=== PATIENT | female | born 1995 | race Caucasian/White ===

== ENCOUNTER 2022-02-08 19:35 | Inpatient (IN) ==
[2022-02-08] MEDS ORDERED: OXYTOCIN 30 UNITS/500 ML BAG IV PRN ×2 (20:07)
--- NOTE | 2022-02-08 20:10 | History & Physical Report ---
Date of Service February 08, 2022 Assessment & Plan (1) Encounter for supervision of normal first , unspecified trimester: Plan: Pineda bulb was placed, and immediately upon placement (before inflation of bulb), meconium-tinged amniotic fluid poured out of the pineda tubing. The tube was withdrawn. I discussed with patient that since AROM inadvertently occurred with pineda placement, I would recommend that she stay for induction. Admit to L&D, EFM/toco. Labs. Will start pitocin, as she is wilmar. History of Present Illness Chief Complaint: IOL Primary Care Provider: EVGENY Sargent 26yo @ 40 11/05, here for pineda bulb placement for IOL. Postdates, hypothyroid, h/o lower back herniated discs. Allergies Allergy/AdvReac Type Severity Reaction Status Date / Time No Known Drug Allergies Allergy Unknown Verified 02/08/22 08:28 Home Medications Medication Instructions Recorded Confirmed Type prenat.vits,michelle,wwp-[id number] 1 tab PO DAILY 06/17/21 02/08/22 History levothyroxine 88 mcg tablet 88 mcg PO DAILY #30 tab 10/07/21 02/08/22 Rx Patient History Medical History Anxiety Hypothyroidism affecting in first trimester Intervertebral disc protrusion Small to moderate left paracentral disc protrusion at the L4-L5 level with secondary deformity of thecal sac. Moderate right sided disc protrusion at L5-S1 level which abuts right S1 nerve root on 12/2020 lumbar spine MRI Lumbar back pain with radiculopathy affecting right lower extremity 05/2021 EMG: mild acute right S1 radiculopathy Surgical History H/O tooth extraction wisdom teeth Family History Unknown Breast cancer Grandfather Brain cancer Mother Myocardial infarction Hypertension Dyslipidemia Mini stroke Stroke Father Gout Denies family history of Ovarian cancer Prostate cancer Colorectal cancer Social History Smoking Status: Never smoker Second Hand Exposure: No; Hx Alcohol Use: No Hx Substance Use: No Preferred Language: Citizen Of [place] Communication Ability: Effective Visual Impairment: No Limitations Hearing Ability: Normal Gin Clerk Required: No Beliefs That Will Affect Care: None marital status: marital status details: Vadim (26) [phone] Current Living Situation: Spouse Current Living Situation Comment: lives with with fob, and 1 dog, 1 cat, fob to change litter current occupational status: employed current occupation: [employer] - O[employer] Other Information That Helps Us Care for You: No Feels Safe at Home: Yes Safety Concerns: Feels Safe At This Time Childhood Exposure to Second-Hand Smoke: Yes caffeine: Yes Dental Care, Regularly: Yes Physical Activity Frequency: 3-4 Times per Week Seatbelt Use: always Sunscreen Use: Yes Assistive Devices: Glasses Review of Systems All systems reviewed & are unremarkable except as noted in HPI & below Physical Exam Physical Exam: SVE 1-2/50/-2 Medium/mid. EFW 8-9 Constitutional: WD/WN, vitals as above Respiratory: normal respiratory effort, lungs clear to auscultation no respiratory distress Cardiovascular: Rate/Rhythm: regular rate and regular rhythm Gastrointestinal (Abdomen): Inspection/Auscultation: abdomen normal to inspection Percussion/Palpation: abdomen soft; abdomen nontender Gravid. No s/s chorio or abruption. Skin: no rashes, warm and dry Psychiatric: A+Ox3, euthymic affect Results & Data ([facility]) Vital Signs (Past 12 Hours) Vital Signs Temp Pulse Resp BP 02/08/22 19:47 37.2 C 18 02/08/22 19:43 85 133/86 Monitoring External Monitor FHT Cat 1, [place] Q 3-5 min Coding Level of Care Code None Diagnoses Encounter for supervision of normal first , unspecified trimester Z34.00
[2022-02-08 20:31] LABS: Hematocrit (blood only) 34.3 % (34.1-44.9); Hemoglobin 11.4 g/dl (12.0-16.0); Mean Corpuscular Hemoglobin 30.3 pg (25.0-34.0); Mean Corpuscular Hgb Conc 33.2 g/dL (32.0-36.0); Mean Corpuscular Volume 91.2 fL (80.0-100.0); Mean Platelet Volume 8.6 fL (9.4-12.3); Platelet Count 300 K/uL (130-400); RDW Coefficient of Variation 15.9 % (11.5-14.5); RDW Standard Deviation 52.8 fL (36.4-46.3); Red Blood Count 3.76 M/uL (3.93-5.22); White Blood Count 11.77 K/ul (4.8-10.8)
[2022-02-08] MEDS: LACTATED RINGER'S 1,000 ML IV PRN (20:52)
[2022-02-09] MEDS ORDERED: LIDOCAINE 2%/EPINEPHRINE 1:200,000 20 ML SDV ONE (00:56)
[2022-02-09] MEDS ORDERED: ePHEDrine sulfate 50 MG/ML AMP ONE (00:56)
[2022-02-09] MEDS ORDERED: SODIUM CHLORIDE 0.9% INJ 10 ML VIAL ONE (00:56)
[2022-02-09] MEDS ORDERED: fentaNYL citrate 100 MCG/2 ML VIAL ONE (00:56)
[2022-02-09] MEDS ORDERED: BUPIVACAINE 0.25% 30 ML VIAL ONE (00:56)
[2022-02-09] MEDS ORDERED: fentaNYL 2MCG/ML ROPIVACAINE 1.25MG/ML 100 ML BAG EPI ONE (00:57)
[2022-02-09] MEDS ORDERED: diphenhydrAMINE 50 MG/ML VIAL IV PRN (01:16)
[2022-02-09] MEDS ORDERED: NALOXONE HCL 1 MG in SODIUM CHLORIDE 0.9% 1000ML 1,000 ML IV PRN (01:16)
[2022-02-09] MEDS ORDERED: NALOXONE HCL 0.4 MG/1 ML VIAL/CARP IV PRN (01:16)
[2022-02-09] MEDS ORDERED: fentaNYL 2MCG/ML ROPIVACAINE 1.25MG/ML 100 ML BAG EPI PRN (01:16)
[2022-02-09] MEDS ORDERED: ONDANSETRON INJ 2 MG/ML 2 ML VIAL IV PRN (01:16)
[2022-02-09] MEDS ORDERED: NALBUPHINE HCL INJ 10 MG/ML AMP IV PRN (01:16)
[2022-02-09] MEDS ORDERED: ePHEDrine sulfate 50 MG/ML AMP IV PRN (01:16)
--- NOTE | 2022-02-09 01:20 | Anesthesiology Consultation ---
Date of Service February 09, 2022 Assessment & Plan Chart Review Chart Review: Patient NOT seen in Pre Admission Testing and Acceptable Risk for Labor Epidural Consults Requested none ASA ASA2 Proposed Anesthesia Anesthesia Type: Labor Epidural and CSE Risk / Benefits Reviewed With: PT / POA / Parent / Guardian, Accepts Plan and Informed Consent Obtained History Height/Weight Height: 5 ft 7 in Weight: 99.79 kg Allergies Allergy/AdvReac Type Severity Reaction Status Date / Time No Known Drug Allergies Allergy Unknown Verified 02/08/22 08:28 Medications Home Medications Medication Instructions Recorded Confirmed Last Taken prenat.vits,michelle,[id number] 1 tab PO DAILY 06/17/21 02/08/22 02/08/22 18:30 levothyroxine 88 mcg tablet 88 mcg PO DAILY #30 tab 10/07/21 02/08/22 02/08/22 06:30 Active Medications Generic Name Dose Route Start Last Admin Trade Name Freq PRN Reason Stop Dose Admin Oxytocin 30 units in 500 mls @ 1 mls/hr 02/08/22 20:07 02/08/22 20:53 Pitocin IV 02/10/22 20:06 0.06 units/hr .Q24H PRN 1 mls/hr Labor Induction/Augmentation Administration Protocol 0.06 UNITS/HR Lactated Ringer's 1,000 mls @ 125 mls/hr 02/08/22 20:07 02/08/22 20:52 Lr IV 02/10/22 20:06 125 mls/hr .Q8H PRN Administration L&D Protocol Protocol NPO Date Last Intake of Fluids: 02/09/22 Time Last Intake of Fluids: 00:30 Date Last Intake of Solids: 02/08/22 Time Last Intake of Solids: 16:00 Past Medical History Medical History Anxiety Hypothyroidism affecting in first trimester Intervertebral disc protrusion Small to moderate left paracentral disc protrusion at the L4-L5 level with secondary deformity of thecal sac. Moderate right sided disc protrusion at L5-S1 level which abuts right S1 nerve root on 12/2020 lumbar spine MRI Lumbar back pain with radiculopathy affecting right lower extremity 05/2021 EMG: mild acute right S1 radiculopathy Exercise / Class Metabolic Activity II 4-5 Yardwork/Stairs/Walk up hill Past Family History Family History Unknown Breast cancer Grandfather Brain cancer Mother Myocardial infarction Hypertension Dyslipidemia Mini stroke Stroke Father Gout Denies family history of Ovarian cancer Prostate cancer Colorectal cancer Past Surgical History Surgical History H/O tooth extraction wisdom teeth Past Anesthesia History No Hx of Anesthesia Complications and No Family Hx of Anesthesia Complications History of PONV No Hx of PONV and No Hx of Motion Sickness Social History Smoking Status: Never smoker Hx Alcohol Use: No Hx Substance Use: No Review of Systems no chest pain or sob Physical Exam Vital Signs Last Vital Signs Temp 36.7 C 02/08/22 23:56 Pulse 95 H 02/09/22 01:13 Resp 18 02/08/22 19:47 BP 116/67 02/08/22 23:53 Pulse Ox 99 02/09/22 01:13 ENMT Mouth: no TMJ abnormality Thyromental Distance: > or= 3.5 Finger Breadths Mallampati Class: II Neck normal visual inspection Respiratory normal respiratory effort Auscultation: lungs clear to auscultation bilaterally Cardiovascular Rate/Rhythm: regular rate and regular rhythm Musculoskeletal Spine: normal cervical ROM Neurologic moves all extremities Psychiatric Orientation: alert and oriented x 3 Testing Laboratory Results 02/08/22 20:15
[2022-02-09] MEDS: LACTATED RINGER'S 1,000 ML IV PRN ×2 (01:36→05:46)
[2022-02-09] MEDS ORDERED: NURSING L&D Epidural Breakthrough Pain Update ONE (05:28)
--- NOTE | 2022-02-09 07:42 | Delivery Summary ---
Vaginal Delivery Summary Date of Service February 09, 2022 Vaginal Delivery Summary and 2nd Degree LAC Vaginal Delivery Summary: Pre-delivery diagnoses: 26yo @ 40 5/7, IOL, hypothyroidism, h/o herniated discs in back Post-delivery diagnoses: same Procedure: spontaneous vaginal delivery Surgeon: Christiana Holt DO Complications: none Findings: Viable female . Apgars: 8/9. Weight pending, please see nursery records Estimated blood loss: 300ml Description of delivery: The patient progressed to complete with epidural anesthesia. She then began to push. She spontaneously vaginally delivered a viable from the cephalic presentation. The head delivered in LUIS ENRIQUE position. The anterior shoulder delivered, followed by the posterior shoulder, followed by the body. No nuchal cord. The baby was placed on mother's abdomen and a spontaneous cry was heard. Delayed cord clamping was employed, and the cord was doubly clamped and cut. Cord blood was obtained. The placenta was delivered spontaneously intact with a 3-vessel cord. The uterus and vagina were swept of clots and debris. IV pitocin was given. The uterus became firm. The cervix, vagina, and perineum were inspected and a 2nd degree perineal laceration was noted, repaired in standard fashion with 3-0 Vicryl. Excellent hemostasis was observed. The mother and baby are recovering in stable and good condition in the room. Sponge, needle and instrument counts were correct x 2. Christiana Holt DO [facility] Vaginal Delivery Charge Vaginal Delivery Codes: 67617 global code for the antepartum, delivery, and post- Delivery Type Details: and 2nd Degree LAC
[2022-02-09] MEDS ORDERED: OXYTOCIN 30 UNITS/500 ML BAG IV PRN (07:52)
[2022-02-09] MEDS ORDERED: HYDROCORTISONE ACETATE 25 MG SUPP PR PRN (07:52)
[2022-02-09] MEDS ORDERED: bisacodyL 10 MG SUPP PR PRN (07:52)
[2022-02-09] MEDS ORDERED: DIPHTHERIA/TETANUS/PERTUSSIS 0.5 ML SYR/VIAL IM ONE (07:52)
[2022-02-09] MEDS ORDERED: oxyCODONE/ACETAMINOPHEN 5mg/325mg TAB PO PRN (07:52)
[2022-02-09] MEDS ORDERED: BENZOCAINE 20% AER SPR 82.5 GM CAN EXT PRN (07:52)
[2022-02-09] MEDS: IBUPROFEN 600 MG TAB PO PRN ×3 (09:22→20:38)
[2022-02-09] MEDS: LEVOTHYROXINE SODIUM 88 MCG TABLET PO SCH (09:37)
[2022-02-09] MEDS: PRENATAL VITAMIN 1 TAB PO SCH (09:57)
[2022-02-09] MEDS: DOCUSATE SODIUM 100 MG CAP PO SCH ×2 (09:58→20:38)
--- NOTE | 2022-02-09 09:58 | Anesthesia Procedure Note ---
Date of Service February 09, 2022 Anesthesia Post Epidural Note Vital Signs Vital Signs: Temp Pulse Resp BP Pulse Ox 37.7 C H 74 18 118/63 96 02/09/22 05:04 02/09/22 09:55 02/09/22 05:00 02/09/22 09:55 02/09/22 07:48 Pain Intensity Abdomen: Pain Intensity: 5 Notes Mental Status: alert / awake / arousable Nausea / Vomiting: adequately controlled Pain: adequately controlled Airway Patency, RR, SpO2: stable & adequate BP & HR: stable & adequate Hydration State: stable & adequate Neuraxial Anesthesia: was administered and sensory block is resolving Anesthetic Complications: no major complications apparent and Pt Satisfied with anesthetic care Epidural: Removed without complications and With tip intact
[2022-02-09] MEDS: ACETAMINOPHEN 325 MG TAB PO PRN (20:39)
[2022-02-10] MEDS: ACETAMINOPHEN 325 MG TAB PO PRN ×3 (02:30→12:03)
[2022-02-10] MEDS: IBUPROFEN 600 MG TAB PO PRN ×5 (02:30→20:47)
--- NOTE | 2022-02-10 05:44 | Obstetrical Progress Note ---
Date of Service <Kinjal Preston DO - Last Filed: 02/10/22 06:44> February 10, 2022 Assessment & Plan <Kinjal Preston DO - Last Filed: 02/10/22 06:44> (1) Status post vaginal delivery: continue OOB, ambulation, diet as tolerated <Tabitha Cain MD, FACOG - Last Filed: 02/10/22 08:03> (1) Status post vaginal delivery: Subjective <Kinjal Preston DO - Last Filed: 02/10/22 06:44> Molly is a 26 y/o female who is now PPD # 1 following vaginal delivery at 40 5/7. Reports feeling well overall this morning. Mild abdominal cramping well managed on analgesics. Voiding. Tolerating meals overnight and able to ambulate some. Is passing gas, but no bowel movements. Some persistent lochia with some improvement this morning. Breast feeding. Review of Systems Denies fever, chills, sweats Denies shortness of breath, difficulty breathing, chest pain, palpitations, chest pressure. Denies breast pain. Denies dysuria. Denies headache or changes in vision. Physical Exam <Kinjal Preston DO - Last Filed: 02/10/22 06:44> General: Alert, oriented. No acute distress. Cardiac: Regular rate and rhythm, no murmurs/rubs/gallops. Respiratory: Clear to auscultation bilaterally a/p, no wheezes/rales/rhonchi. No increased work of breathing. Symmetrical chest rise. No respiratory distress. Abdomen: Soft, nontender, nondistended. Bowel sounds present. Uterus: Uterine fundus firm, palpable _ cm below umbilicus. Lower Extremities: Some lower extremity edema. No deep calf pain. Ilsa's negative bilaterally. <Tabitha Cain MD, FACOG - Last Filed: 02/10/22 08:03> General: Alert, oriented. No acute distress. Cardiac: Regular rate and rhythm, no murmurs/rubs/gallops. Respiratory: Clear to auscultation bilaterally a/p, no wheezes/rales/rhonchi. No increased work of breathing. Symmetrical chest rise. No respiratory distress. Abdomen: Soft, nontender, nondistended. Bowel sounds present. Uterus: Uterine fundus firm, palpable 2 cm below umbilicus. Lower Extremities: Some lower extremity edema. No deep calf pain. Ilsa's negative bilaterally. Results & Data ([facility]) <Kinjal Preston DO - Last Filed: 02/10/22 06:44> Vital Signs (Past 12 Hours) Temp Pulse Resp BP Pulse Ox O2 Del Method 36.8 C 92 H 18 110/67 97 02/09/22 15:20 02/09/22 15:20 02/09/22 15:20 02/09/22 15:20 02/09/22 15:20 02/09/22 15:20 <Tabitha Cain MD, FACOG - Last Filed: 02/10/22 08:03> Co-Signing Physician Notes Resident Physician Supervision Note: I was present with Dr. Preston during the history and exam. I discussed the case with the resident and agree with the findings and plan as documented in the note. Any exceptions or clarifications are listed here: stable, routine care. rh pos, ri. . abd soft ff 2 down nt, nt calves. +1edema. Documented By: Tabitha Cain MD, FACOG Resident Activity Tracking <Kinjal Preston DO - Last Filed: 02/10/22 06:44> Resident Involvement: Resident Care Provided Care Provided: OB Delivery (Post )
[2022-02-10] MEDS: LEVOTHYROXINE SODIUM 88 MCG TABLET PO SCH (06:21)
[2022-02-10 07:09] LABS: Hematocrit (blood only) 30.9 % (34.1-44.9); Hemoglobin 10.1 g/dl (12.0-16.0)
[2022-02-10] MEDS: PRENATAL VITAMIN 1 TAB PO SCH (07:37)
[2022-02-10] MEDS: DOCUSATE SODIUM 100 MG CAP PO SCH ×2 (07:37→20:47)
[2022-02-10] MEDS ORDERED: bisacodyL 5 MG TABEC PO SCH (20:00)
[2022-02-11] MEDS: IBUPROFEN 600 MG TAB PO PRN ×2 (01:24→05:04)
--- NOTE | 2022-02-11 05:02 | Obstetrical Progress Note ---
Date of Service <Kinjal Preston DO - Last Filed: 02/11/22 06:02> February 11, 2022 Assessment & Plan <Kinjal SArmani Preston DO - Last Filed: 02/11/22 06:02> (1) Status post vaginal delivery: continue OOB, ambulation, diet as tolerated Discharge today <Farzana Toro MD - Last Filed: 02/11/22 07:41> (1) Status post vaginal delivery: Subjective <Kinjal Mary DO Mohan - Last Filed: 02/11/22 06:02> Molly is a 26 y/o female who is now PPD # 2 following vaginal delivery at 40 5/7. Reports feeling well overall this morning. Mild abdominal cramping well managed on analgesics. Voiding. Tolerating meals overnight and able to ambulate some. Is passing gas and had a bowel movements. Some persistent lochia with improvement this morning. Breast feeding. Physical Exam <Kinjal Preston DO - Last Filed: 02/11/22 06:02> General: Alert, oriented. No acute distress. Cardiac: Regular rate and rhythm, no murmurs/rubs/gallops. Respiratory: Clear to auscultation bilaterally a/p, no wheezes/rales/rhonchi. No increased work of breathing. Symmetrical chest rise. No respiratory distress. Abdomen: Soft, nontender, nondistended. Bowel sounds present. Uterus: Uterine fundus firm, palpable 2 cm below umbilicus. Lower Extremities: Some lower extremity edema. No deep calf pain. Ilsa's negative bilaterally. Results & Data ([facility]) <Kinjal Preston DO - Last Filed: 02/11/22 06:02> Vital Signs (Past 12 Hours) Vital Signs Temp Pulse Resp BP Pulse Ox O2 Del Method 02/10/22 23:00 36.7 C 79 20 128/76 99 Room Air 02/10/22 19:30 36.7 C 70 20 134/81 99 Room Air <Farzana Toro MD - Last Filed: 02/11/22 07:41> Co-Signing Physician Notes Resident Physician Supervision Note: I interviewed and examined the patient. Discussed with Dr. Preston and agree with findings and plan as documented in the note. Any exceptions or clarifications are listed here: [ ] Documented By: Farzana Toro MD, FACOG Resident Activity Tracking <Kinjal Preston, DO - Last Filed: 02/11/22 06:02> Resident Involvement: Resident Care Provided Care Provided: OB Delivery (Post )
[2022-02-11] MEDS: LEVOTHYROXINE SODIUM 88 MCG TABLET PO SCH (05:53)
[2022-02-11] MEDS: DOCUSATE SODIUM 100 MG CAP PO SCH (08:05)
[2022-02-11] MEDS: PRENATAL VITAMIN 1 TAB PO SCH (08:05)
== END 2022-02-11 13:00 | disposition home or self-care (01) | DRG 807 ==
LOC: OPB 19:35 → 4S1 19:37 → 4E2 02-09 10:49

== ENCOUNTER 2024-01-31 07:37 | Inpatient (IN) ==
[2024-01-31] MEDS ORDERED: OXYTOCIN 30 UNITS/NSS 30 UNITS/500 ML BAG IV PRN ×2 (07:47→15:02)
[2024-01-31] MEDS ORDERED: LIDOCAINE 1% LOCAL 20 ML VIAL INFIL PRN (07:47)
[2024-01-31 08:17] LABS: Hematocrit (blood only) 36.3 % (37.0-47.0); Hemoglobin 12.1 g/dl (12.0-16.0); Mean Corpuscular Hemoglobin 29.7 pg (25.0-34.0); Mean Corpuscular Hgb Conc 33.3 g/dL (32.0-36.0); Mean Platelet Volume 8.3 fL (9.4-12.4); Platelet Count 264 K/uL (130-400); RDW Coefficient of Variation 15.9 % (11.5-14.5); RDW Standard Deviation 51.7 fL (36.4-46.3); Red Blood Count 4.08 M/uL (4.20-5.40)
[2024-01-31] MEDS: LEVOTHYROXINE SODIUM 88 MCG TABLET PO SCH (08:29)
[2024-01-31] MEDS: LACTATED RINGER'S 1,000 ML IV PRN (08:30)
[2024-01-31] MEDS: OXYTOCIN 30 UNITS/NSS 30 UNITS/500 ML BAG IV PRN (08:33)
--- NOTE | 2024-01-31 11:10 | History & Physical Report ---
Date of Service January 31, 2024 Assessment & Plan (1) Insulin controlled gestational diabetes mellitus (GDM) during : Plan: Intrauterine at 39-4/7 weeks presents for induction of labor because of GDM on insulin. Pitocin induction was begun per labor and delivery protocol. Epidural when requested. Anticipate vaginal . Admission and Anticipated Discharge Date Admission Date: January 31, 2024 History of Present Illness Primary Care Provider: Tyesha Thornton MD Patient is a 28-year-old 2 para 1-0-0-1 female EDC of 02/03/2024 who presents for induction of labor because of GDM on insulin. Blood sugars have been well-controlled during her on evening dose of insulin alone. testing has all been reassuring. GBS is negative. has also been complicated by hypothyroidism. Allergies Allergy/AdvReac Type Severity Reaction Status Date / Time No Known Drug Allergies Allergy Mild Unknown Verified 01/31/24 08:44 Home Medications Medication Instructions Recorded Confirmed Type prenat.vits,michelle,[id number] 1 tab PO DAILY 06/17/21 01/31/24 History levothyroxine 88 mcg tablet 88 mcg PO DAILY #90 tabs 09/12/23 01/31/24 Rx acetone (urine) test (Ketone Urine #50 ea 11/25/23 01/30/24 Rx Test strips) blood sugar diagnostic (OneTouch #150 ea 11/25/23 01/30/24 Rx Verio test strips) blood-glucose meter (OneTouch #1 ea 11/25/23 01/30/24 Rx Verio Reflect Meter) lancets 33 gauge (OneTouch Delica #150 ea 11/25/23 01/30/24 Rx Plus Lancet) insulin NPH isoph U-100 human 100 8 unit (0.08 mL) subcut QPM #15 mL 12/15/23 01/31/24 Rx unit/mL (3 mL) subcutaneous pen (Novolin N FlexPen) pen needle, diabetic 32 gauge x #50 ea 12/15/23 01/30/24 Rx 5/32" (BD Ultra-Fine Libby Pen Needle) Patient History Medical History History of chicken pox Intervertebral disc protrusion Small to moderate left paracentral disc protrusion at the L4-L5 level with secondary deformity of thecal sac. Moderate right sided disc protrusion at L5-S1 level which abuts right S1 nerve root on 12/2020 lumbar spine MRI Encounter for supervision of normal first , unspecified trimester Surgical History Status post vaginal delivery H/O tooth extraction wisdom teeth Family History Unknown Breast cancer Grandfather Brain cancer Mother Myocardial infarction Hypertension Dyslipidemia Mini stroke Stroke Father Gout Denies family history of Ovarian cancer Prostate cancer Colorectal cancer Social History (Updated 06/27/23 @ 10:53 by Sylvia Deng) Smoking Status: Never smoker Second Hand Exposure: No; Do You Dip or Chew Tobacco: No; Hx Alcohol Use: No Hx Substance Use: No Preferred Language: [place]ican Communication Ability: Effective Visual Impairment: No Limitations Hearing Ability: Normal Assistant Customer Service Manager Required: No Beliefs That Will Affect Care: None marital status: marital status details: Vadim Ferrelljesus (28) [phone] Current Living Situation: Spouse and Family Current Living Situation Comment: lives with with fob, daughter, 1 cat, fob to change litter current occupational status: other current occupation: homemaker Other Information That Helps Us Care for You: No Feels Safe at Home: Yes Safety Concerns: Feels Safe At This Time Childhood Exposure to Second-Hand Smoke: Yes caffeine: Yes Dental Care, Regularly: Yes Physical Activity Frequency: 3-4 Times per Week Seatbelt Use: always Sunscreen Use: Yes Assistive Devices: None Review of Systems All systems reviewed & are unremarkable except as noted in HPI & below Physical Exam Constitutional: WD/WN, vitals as above Psychiatric: A+Ox3, euthymic affect Genitourinary: OB Exam Abdomen: + vertex, + estimated weight (7-8 pounds) and + irregular contractions Manual OB Exam: + cervical dilation 2 cm, + cervical effacement 50% and + station -1 OB Exam Monitor Tracing: + external FHT monitor used, + external uterine monitor used, + category I and + normal FHT variability Results & Data Vital Signs (Past 12 Hours) Vital Signs Temp Pulse Resp BP 01/31/24 10:38 70 01/31/24 10:38 129/81 01/31/24 09:37 18 01/31/24 09:37 18 07/02/24 09:37 83 01/31/24 09:37 134/79 01/31/24 07:55 98.8 F 20 01/31/24 07:48 81 130/75 Code Status & VTE Plan VTE Prophylaxis Plan VTE Prophylaxis will be ordered: No Coding Level of Care Code None Diagnoses Insulin controlled gestational diabetes mellitus (GDM) during O24.414
[2024-01-31] MEDS ORDERED: fentaNYL citrate PF 100 MCG/2 ML VIAL EPI PRN (12:36)
[2024-01-31] MEDS ORDERED: SODIUM CHLORIDE 0.9% PF INJ 10 ML VIAL EPI PRN (12:36)
[2024-01-31] MEDS ORDERED: ePHEDrine sulfate 50 MG/ML AMP IV PRN (12:36)
[2024-01-31] MEDS ORDERED: diphenhydrAMINE 50 MG/ML VIAL IV PRN (12:36)
[2024-01-31] MEDS ORDERED: NALOXONE HCL 1 MG in SODIUM CHLORIDE 0.9% 1,000 ML IV PRN (12:36)
[2024-01-31] MEDS ORDERED: ROPIVACAINE 0.5% PF 5 MG/ML 20 ML VIAL EPI PRN (12:36)
[2024-01-31] MEDS ORDERED: fentANYL 2 MCG/ML BUPIVacaine 0.125%-NSS 100ML BAG EPI PRN (12:36)
[2024-01-31] MEDS ORDERED: BUPIVACAINE 0.25% PF 30 ML VIAL EPI PRN (12:36)
[2024-01-31] MEDS ORDERED: NALOXONE HCL 0.4 MG/1 ML VIAL/CARP IV PRN (12:36)
[2024-01-31] MEDS ORDERED: LIDOCAINE 2% MPF LOCAL 5 ML VIAL EPI PRN (12:36)
[2024-01-31] MEDS ORDERED: NALBUPHINE HCL 5 MG in SYRINGE 0 ML IV PRN (12:36)
--- NOTE | 2024-01-31 12:38 | Anesthesiology Consultation ---
Date of Service January 31, 2024 Assessment & Plan (1) Encounter for pre-operative examination: Chart Review Chart Review: Patient NOT seen in Pre Admission Testing and Acceptable Risk for Labor Epidural Consults Requested none History Height/Weight Height: 5 ft 7 in Weight: 100.698 kg Allergies Allergy/AdvReac Type Severity Reaction Status Date / Time No Known Drug Allergies Allergy Mild Unknown Verified 01/31/24 08:44 Medications Home Medications Medication Instructions Recorded Confirmed Last Taken prenat.vits,michelle,vdy-[id number]-ktcgz 1 tab PO DAILY 06/17/21 01/31/24 02/08/22 18:30 levothyroxine 88 mcg tablet 88 mcg PO DAILY #90 tabs 09/12/23 01/31/24 01/31/24 06:00 acetone (urine) test (Ketone Urine #50 ea 11/25/23 01/30/24 Unknown Test strips) blood sugar diagnostic (OneTouch #150 ea 11/25/23 01/30/24 Unknown Verio test strips) blood-glucose meter (OneTouch #1 ea 11/25/23 01/30/24 Unknown Verio Reflect Meter) lancets 33 gauge (OneTouch Delica #150 ea 11/25/23 01/30/24 Unknown Plus Lancet) insulin NPH isoph U-100 human 100 8 unit (0.08 mL) subcut QPM #15 mL 12/15/23 01/31/24 01/30/24 20:00 unit/mL (3 mL) subcutaneous pen (Novolin N FlexPen) pen needle, diabetic 32 gauge x #50 ea 12/15/23 01/30/24 Unknown 532" (BD Ultra-Fine Libby Pen Needle) Active Medications Generic Name Dose Route Start Last Admin Trade Name Freq PRN Reason Stop Dose Admin Oxytocin 30 units in 500 mls @ 10 mls/hr 01/31/24 07:47 01/31/24 10:35 Pitocin 30 Units/Nss IV 02/02/24 07:46 0.6 units/hr .Q24H PRN 10 mls/hr Labor Induction/Augmentation Titration Protocol 0.6 UNITS/HR Lactated Ringer's 1,000 mls @ 125 mls/hr 01/31/24 07:47 01/31/24 12:26 Lr IV 02/02/24 07:46 125 mls/hr .Q8H PRN Administration L&D Protocol Protocol Levothyroxine Sodium 88 mcg 01/31/24 08:00 01/31/24 08:29 Levothyroxine Sodium 88 Mcg Tablet PO 03/01/24 07:59 Not Given DAILYBB ALCON Past Medical History Medical History History of chicken pox Intervertebral disc protrusion Small to moderate left paracentral disc protrusion at the L4-L5 level with secondary deformity of thecal sac. Moderate right sided disc protrusion at L5-S1 level which abuts right S1 nerve root on 12/2020 lumbar spine MRI Encounter for supervision of normal first , unspecified trimester Exercise / Class Metabolic Activity II 4-5 Yardwork/Stairs/Walk up hill Past Family History Family History Unknown Breast cancer Grandfather Brain cancer Mother Myocardial infarction Hypertension Dyslipidemia Mini stroke Stroke Father Gout Denies family history of Ovarian cancer Prostate cancer Colorectal cancer Past Surgical History Surgical History Status post vaginal delivery H/O tooth extraction wisdom teeth Social History Smoking Status: Never smoker Do You Dip or Chew Tobacco: No Hx Alcohol Use: No Hx Substance Use: No substance use type: does not use Physical Exam Vital Signs Last Vital Signs Temp 37.1 C 01/31/24 07:55 Pulse 98 H 01/31/24 12:51 Resp 18 01/31/24 09:37 BP 131/83 01/31/24 12:41 Pulse Ox 99 01/31/24 12:51 Testing Laboratory Results 01/31/24 07:56 01/31/24 01/31/24 01/31/24 11:03 09:05 08:18 POC Glucose 93 97 105 H
[2024-01-31] MEDS: fentANYL 2 MCG/ML BUPIVacaine 0.125%-NSS 100ML BAG ONE (13:04)
[2024-01-31] MEDS: fentaNYL citrate PF 100 MCG/2 ML VIAL ONE (13:11)
[2024-01-31] MEDS: LIDOCAINE 2%/EPINEPHRINE 1:200,000 20 ML PF ONE (13:11)
[2024-01-31] MEDS: BUPIVACAINE 0.25% PF 30 ML VIAL ONE (13:12)
[2024-01-31] MEDS ORDERED: BENZOCAINE 20% SPRY 85 APPLN/85 GM CAN EXT PRN (15:02)
[2024-01-31] MEDS ORDERED: bisacodyL 10 MG SUPP PR PRN (15:02)
[2024-01-31] MEDS ORDERED: HYDROCORTISONE ACETATE 25 MG SUPP PR PRN (15:02)
[2024-01-31] MEDS ORDERED: oxyCODONE/ACETAMINOPHEN 5mg/325mg TAB PO PRN (15:02)
[2024-01-31] MEDS ORDERED: DIPHTHER/TETAN/PERTUS Vaccine (Tdap, Adol/Adult) 0.5mL IM ONE (15:02)
--- NOTE | 2024-01-31 15:07 | Delivery Summary ---
Vaginal Delivery Summary Date of Service January 31, 2024 Vaginal Delivery Summary [facility] Patient is a 28-year-old 2 para 1-0-0-1 female who presents at 39 4/7 weeks for induction of labor because of GDM on insulin. Pitocin induction was begun per labor and delivery protocol. Membranes ruptured spontaneously for clear fluid. She received effective epidural analgesia. She progressed to full dilation with delivery of a viable male over intact perineum. Rest the infant delivered without maternal effort. He was vigorous crying and moving all 4 limbs. After 1 minute, the blood cord was clamped and cut. After cord blood was obtained, the placenta was expressed intact with a three-vessel cord. bleeding was controlled with dilute Pitocin and fundal massage. Perineum was noted to be intact. QBL is 207 mL. Mother and doing well after delivery. [facility] [place] Vaginal Delivery Charge Delivery Type Details: [facility]
[2024-01-31] MEDS: SODIUM CHLORIDE 0.9% PF INJ 10 ML VIAL ONE (16:33)
[2024-01-31] MEDS: LIDOCAINE 2%/EPINEPHRINE 1:200,000 20 ML PF EPI STA (16:33)
[2024-01-31] MEDS: BUPIVACAINE 0.25% PF 30 ML VIAL EPI STA (16:33)
[2024-01-31] MEDS: SODIUM CHLORIDE 0.9% PF INJ 10 ML VIAL EPI STA (16:33)
[2024-01-31] MEDS: fentaNYL citrate PF 100 MCG/2 ML VIAL EPI STA (16:33)
[2024-01-31] MEDS: ePHEDrine sulfate 50 MG/ML AMP ONE (16:33)
--- NOTE | 2024-01-31 17:14 | Anesthesia Procedure Note ---
Date of Service January 31, 2024 Anesthesia Post Epidural Note Vital Signs Vital Signs: Temp Pulse Resp BP Pulse Ox 36.4 C L 93 H 16 114/67 97 01/31/24 13:39 01/31/24 17:10 01/31/24 11:30 01/31/24 17:10 01/31/24 14:51 Pain Intensity Abdomen: Pain Intensity: 1 Notes Mental Status: alert / awake / arousable and participated in evaluation Patient Amnestic to Procedure: No Nausea / Vomiting: adequately controlled Pain: adequately controlled Airway Patency, RR, SpO2: stable & adequate BP & HR: stable & adequate Hydration State: stable & adequate Neuraxial Anesthesia: was administered and sensory block is resolving Anesthetic Complications: no major complications apparent and Pt Satisfied with anesthetic care Epidural: Removed without complications and With tip intact
[2024-01-31] MEDS: IBUPROFEN 600 MG TAB PO PRN (20:31)
[2024-01-31] MEDS: DOCUSATE SODIUM 100 MG CAP PO SCH (20:31)
[2024-02-01] MEDS: ACETAMINOPHEN 325 MG TAB PO PRN (03:06)
[2024-02-01 06:27] LABS: Hematocrit (blood only) 34.7 % (37.0-47.0); Hemoglobin 11.4 g/dl (12.0-16.0); Mean Corpuscular Hemoglobin 29.7 pg (25.0-34.0); Mean Corpuscular Hgb Conc 32.9 g/dL (32.0-36.0); Mean Corpuscular Volume 90.4 fL (80.0-100.0); Mean Platelet Volume 8.5 fL (9.4-12.4); Platelet Count 230 K/uL (130-400); RDW Coefficient of Variation 16.1 % (11.5-14.5); RDW Standard Deviation 53.1 fL (36.4-46.3); Red Blood Count 3.84 M/uL (4.20-5.40); White Blood Count 10.78 K/ul (4.8-10.8)
--- NOTE | 2024-02-01 07:22 | Obstetrical Progress Note ---
Date of Service February 01, 2024 Assessment & Plan (1) Encounter for care and examination after delivery: Satisfactory exam. Continue current plan Discharge to home when baby is discharged. Subjective Ambulation: ambulating normally Voiding: no voiding problems Passing Gas:: Yes Diet Tolerance:: regular diet Lochia:: Small Feeding Type:: breast feeding Review of Systems All systems reviewed & are unremarkable except as noted in HPI & below Physical Exam Constitutional WD/WN, vitals as above Psychiatric A+Ox3, euthymic affect Genitourinary OB Exam Abdomen: + fundal height (at U) Fundus: + firm Results & Data Vital Signs (Past 12 Hours) Vital Signs Temp Pulse Resp BP Pulse Ox O2 Del Method 02/01/24 03:05 98.6 F 79 18 96/59 L 99 Room Air 01/31/24 23:10 98.2 F 79 18 104/67 97 Room Air 01/31/24 19:25 99.0 F 90 18 107/71 97 Room Air
[2024-02-01] MEDS: PRENATAL VITAMIN 1 TAB PO SCH (08:48)
[2024-02-01] MEDS ORDERED: bisacodyL 5 MG TABEC PO SCH (20:00)
== END 2024-02-01 15:45 | disposition home or self-care (01) | DRG 807 ==
LOC: 4S1 07:37 → 4E2 18:16